=== PATIENT | female | born 1960 | race Caucasian/White ===

== ENCOUNTER → 2016-12-13 | Outpatient (CLI) | payer OTHER ==
[~2016-12-13] MED LIST: ASPIRIN81 M1 PO; ATORVASTATIN CA40 MG PO; CALCIUM600 MG PO; CLONIDINE1 EAC2 TD; COUMADIN5 MG PO; CRESTOR5 MG PO; KLOR-CON M2020 MEQ PO; LASIX40 MG PO; LEVOTHYROXINE125 MCG PO; LIDODERM 5% P1 PATCH TD; LIPOFEN150 MG PO; LORAZEPAM0.5 MG PO; METHADONE10 MG PO; MUCINEX600 MG PO; PATANASE30.5 GM NS; PRILOSEC20 MG PO; PROAIR HFA8.5 GM IH; PROVENTIL,200 INHALA IH; REQUIP1 MG PO; SAVELLA50 MG PO; SIMVASTATIN20 MG; SPIRIVA1 INHALATI IH; SYMBICORT60 INHALAT IH; TOPIRAMATE50 MG PO; TOPROL XL50 MG PO; VITAMIN C1000 MG PO; VOLTAREN 1% GE100 GM TP; WARFARIN SODIUM2 MG PO; XYREM500 MG/1 M PO; [UNRECOGNIZED DRUG - OTHER] PO
== END | disposition home or self-care (01) ==
LOC: EKG 11-20 10:00
DX: I51.7 Cardiomegaly (principal); I27.2 Other secondary pulmonary hypertension
CPT/HCPCS: 93306

== ENCOUNTER 2018-01-11 10:48 | Observation (INO) | payer OTHER ==
[~2018-01-11] VITALS: Ht 158.8 cm; Wt 97.8 kg
[~2018-01-11 10:48] MED LIST changes: +ASPIR-LOW81 MG PO; -ASPIRIN81 M1 PO; +CALCIUM600 M1 PO; -CALCIUM600 MG PO; +COUMADIN10 MG PO; -COUMADIN5 MG PO; -LASIX40 MG PO; +LASIX80 MG PO; -LEVOTHYROXINE125 MCG PO; +LEVOTHYROXINE150 MCG PO; +METOPROLOL TART50 MG PO; +TOPIRAMATE200 MG PO; -TOPIRAMATE50 MG PO; -TOPROL XL50 MG PO
[2018-01-11 11:53] LABS: HEMATOCRIT 44.1 % (36.0-46.0); HEMOGLOBIN 14.4 G/DL (11.9-15.5); MCH 30.3 PG (29.0-34.0); MCHC 32.7 G/DL (30.0-36.0); MCV 92.6 FL (83-99); PLATELET COUNT 315 K/uL (156-360); RBC DIS.WIDTH-CV 14.4 % (11.8-14.6); RBC DIS.WIDTH-SD 48.8 % (39-53); RED BLOOD COUNT 4.76 M/uL (3.80-5.20); WHITE BLOOD COUNT 9.2 K/uL (4.1-10.2)
[2018-01-11 12:03] LABS: INTER. NORMALIZED RATIO 2.8
[2018-01-11 12:05] LABS: ALBUMIN 4.6 g/dL (3.2-4.8); CHLORIDE 106 mEq/L (99-109); POTASSIUM 3.9 mEq/L (3.7-5.4); PTT 45.3 SEC (25-37); SODIUM 142 mEq/L (136-147)
[2018-01-11 12:07] LABS: GLUCOSE 97 mg/dL (70-99); TOTAL PROTEIN 8.6 g/dL (6.4-8.3)
[2018-01-11 12:09] LABS: TOTAL BILIRUBIN 0.4 mg/dL (0.0-1.0)
[2018-01-11 12:11] LABS: ALKALINE PHOSPHATASE 82 IU/L (3-129); CREATININE 0.9 mg/dL (0.6-1.3); GFR ESTIMATE (CALCULATED) > 59 mL/min/
[2018-01-11 12:12] LABS: UREA NITROGEN (BUN) 20 mg/dL (9-23)
[2018-01-11 12:13] LABS: AST (GOT) 26 IU/L (2-34); DIRECT BILIRUBIN 0.2 mg/dL (0.0-0.3)
[2018-01-11 12:14] LABS: ALT (GPT) 22 IU/L (3-49); LIPASE 20 U/L (1.0-51.0)
[2018-01-11 12:17] LABS: TROP-I INTERPRETATION NEGATIVE; TROPONIN-I < 0.01 ng/mL (0.0-0.30)
[2018-01-11] MEDS ORDERED: BUSPIRONE HCL15 MG PO (13:50)
[2018-01-11] MEDS ORDERED: WARFARIN SODIUM3 MG PO (14:19)
[2018-01-11] MEDS ORDERED: VITAMIN D31000 UNI2 PO (14:20)
[2018-01-11] MEDS ORDERED: PERCOCET 5/31 TABLET PO (14:23)
[2018-01-11 15:45] VITALS: BP 118/61
[2018-01-11 17:17] LABS: TROP-I INTERPRETATION NEGATIVE; TROPONIN-I < 0.01 ng/mL (0.0-0.30)
[2018-01-11 17:34] LABS: D-DIMER ELISA < 150.00 ng/mLDDU (<230)
[2018-01-11 19:40] VITALS: BP 113/53
[2018-01-11 23:32] VITALS: BP 92/59
[2018-01-12] LABS: TROP-I INTERPRETATION NEGATIVE; TROPONIN-I < 0.01 ng/mL (0.0-0.30)
[2018-01-12 03:53] VITALS: BP 122/55
[2018-01-12 05:31] LABS: HEMATOCRIT 38.9 % (36.0-46.0); HEMOGLOBIN 12.5 G/DL (11.9-15.5); MCH 29.6 PG (29.0-34.0); MCHC 32.1 G/DL (30.0-36.0); MCV 92.2 FL (83-99); PLATELET COUNT 271 K/uL (156-360); RBC DIS.WIDTH-CV 14.4 % (11.8-14.6); RBC DIS.WIDTH-SD 48.3 % (39-53); RED BLOOD COUNT 4.22 M/uL (3.80-5.20); WHITE BLOOD COUNT 8.9 K/uL (4.1-10.2)
[2018-01-12 05:36] LABS: INTER. NORMALIZED RATIO 2.5
[2018-01-12 05:58] LABS: CHLORIDE 106 MEQ/L (99-109); CREATININE 0.9 MG/DL (0.6-1.3); GFR ESTIMATE (CALCULATED) > 59 mL/min/; GLUCOSE 95 mg/dL (70-99); POTASSIUM 3.6 MEQ/L (3.7-5.4); SODIUM 139 MEQ/L (136-147); UREA NITROGEN (BUN) 18 mg/dL (9-23)
[2018-01-12 07:30] VITALS: BP 136/60
[2018-01-12 11:13] VITALS: BP 119/56
== END 2018-01-12 13:31 | disposition home or self-care (01) ==
LOC: EME 10:48 → 4SOUTH 13:30 → EDOF 13:30 → 4SOUTH 13:30 → ENRESERV 13:46 → EDOF 14:37 → ENRESERV 14:41 → 4SOUTH 15:33
PROVIDERS: Internal Medicine; Physician Assistant
DX: R07.89 Other chest pain (principal); M54.89 Other dorsalgia; M79.7 Fibromyalgia; I11.0 Hypertensive heart disease with heart failure; I50.9 Heart failure, unspecified; I27.20 Pulmonary hypertension, unspecified; Z95.0 Presence of cardiac pacemaker; Z95.2 Presence of prosthetic heart valve; E11.9 Type 2 diabetes mellitus without complications; J44.9 Chronic obstructive pulmonary disease, unspecified; E78.5 Hyperlipidemia, unspecified; G47.419 Narcolepsy without cataplexy; G89.29 Other chronic pain; G47.30 Sleep apnea, unspecified; F41.3 Other mixed anxiety disorders; Z82.49 Family history of ischemic heart disease and other diseases of the circulatory system; Z87.891 Personal history of nicotine dependence; F10.11 Alcohol abuse, in remission; Z88.5 Allergy status to narcotic agent; Z79.01 Long term (current) use of anticoagulants; Z79.82 Long term (current) use of aspirin; Z79.891 Long term (current) use of opiate analgesic
CPT/HCPCS: 36415; 71046; 80048; 80053; 80061; 80076; 82043; 82570; 83036; 83690; 83880; 84443; 84484; 85027; 85379; 85610; 85730; 93005; 99281; 99285; G0378

== ENCOUNTER 2018-05-10 10:29 | Emergency (ER) | payer OTHER ==
[~2018-05-10] VITALS: Ht 160 cm; Wt 95.6 kg
[~2018-05-10 10:29] MED LIST changes: +BUSPIRONE HCL15 MG PO; +PERCOCET 5/31 TABLET PO; +VITAMIN D31000 UNI2 PO; +WARFARIN SODIUM3 MG PO
[2018-05-10 11:33] LABS: BASOPHIL (%) 0.4 % (0-1); EOSINOPHIL (%) 0.5 % (0-5); EOSINOPHIL COUNT 0.1 K/uL (0-0.3); HEMATOCRIT 45.3 % (36.0-46.0); HEMOGLOBIN 14.8 G/DL (11.9-15.5); IMMATURE GRANULOCYTE (%) 0.3 % (0.0-0.7); LYMPHOCYTE (%) 19.3 % (15-42); LYMPHOCYTE COUNT 1.8 K/uL (1.0-2.8); MCH 29.5 PG (29.0-34.0); MCHC 32.7 G/DL (30.0-36.0); MCV 90.4 FL (83-99); MONOCYTE (%) 6.9 % (3-12); MONOCYTE COUNT 0.6 K/uL (0-0.8); NEUTROPHIL (%) 72.6 % (45-76); NEUTROPHIL COUNT 6.8 K/uL (1.8-6.4); PLATELET COUNT 282 K/uL (156-360); RBC DIS.WIDTH-CV 14.8 % (11.8-14.6); RBC DIS.WIDTH-SD 49.1 % (39-53); RED BLOOD COUNT 5.01 M/uL (3.80-5.20); WHITE BLOOD COUNT 9.3 K/uL (4.1-10.2)
[2018-05-10 11:35] LABS: APPEARANCE CLEAR ((CLEAR)); BILIRUBIN NEGATIVE; BLOOD NEGATIVE; COLOR COLORLESS ((YELLOW)); GLUCOSE (STRIP) NEGATIVE; KETONES NEGATIVE; LEUKOCYTES TRACE; NITRITE NEGATIVE; PROTEIN (STRIP) NEGATIVE; SPECIFIC GRAVITY 1.006 (1.000-1.030); UROBILINOGEN 0.2 MG/DL (0.2-1.0)
[2018-05-10 11:40] LABS: BACTERIA RARE /HPF; EPITHELIAL CELLS 1+ /HPF; MUCUS TRACE /LPF; RED BLOOD CELLS NONE SEEN /HPF (0-5); UCUL ADDED? NO; WHITE BLOOD CELLS 0-5 /HPF (0-5)
[2018-05-10 11:42] LABS: CHLORIDE 111 mEq/L (99-109); POTASSIUM 4.2 mEq/L (3.7-5.4); SODIUM 139 mEq/L (136-147)
[2018-05-10 11:44] LABS: GLUCOSE 121 mg/dL (70-99)
[2018-05-10 11:48] LABS: GFR ESTIMATE (CALCULATED) > 59 mL/min/
[2018-05-10 11:49] LABS: UREA NITROGEN (BUN) 14 mg/dL (9-23)
[2018-05-10] MEDS ORDERED: FLEXERIL10 MG PO (13:27)
[2018-05-10 13:48] VITALS: BP 126/52
== END 2018-05-10 14:01 | disposition home or self-care (01) ==
LOC: EME 10:29
PROVIDERS: Emergency Medicine
DX: M54.5 Low back pain (principal); M47.894 Other spondylosis, thoracic region; N85.4 Malposition of uterus; I70.0 Atherosclerosis of aorta; J44.1 Chronic obstructive pulmonary disease with (acute) exacerbation; K21.9 Gastro-esophageal reflux disease without esophagitis; I27.20 Pulmonary hypertension, unspecified; E78.5 Hyperlipidemia, unspecified; I50.9 Heart failure, unspecified; G47.419 Narcolepsy without cataplexy; G25.81 Restless legs syndrome; M79.7 Fibromyalgia; F32.9 Major depressive disorder, single episode, unspecified; F41.9 Anxiety disorder, unspecified; Z79.82 Long term (current) use of aspirin; Z79.891 Long term (current) use of opiate analgesic; Z79.01 Long term (current) use of anticoagulants; Z95.2 Presence of prosthetic heart valve; Z95.0 Presence of cardiac pacemaker; Z87.442 Personal history of urinary calculi; Z87.19 Personal history of other diseases of the digestive system; Z98.890 Other specified postprocedural states; Z86.79 Personal history of other diseases of the circulatory system; Z88.5 Allergy status to narcotic agent
CPT/HCPCS: 74176; 80048; 81003; 85025; 99281; 99284; J1885; J7030